=== PATIENT | female | born 1960 | race Caucasian/White ===

== ENCOUNTER 2017-09-20 20:41 | Emergency (ER) | payer OTHER ==
[~2017-09-20] VITALS: Ht 162.6 cm; Wt 63.5 kg
--- NOTE | 2017-09-20 22:05 | NUR ---
TO CT PATIENT TO CT VIA WHEELCHAIR WITH LISA CAMP
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
[2017-09-20] MEDS ORDERED: TYLENOL PO ONE (22:31)
[2017-09-20] MEDS ORDERED: TYLENOL PO STA (22:35)
[2017-09-20 22:36] VITALS: BP 164/89
== END 2017-09-20 22:35 | disposition home or self-care (01) ==
LOC: EDBD 20:41 → ER 20:41
DX: S00.03XA Contusion of scalp, initial encounter (principal); F17.200 Nicotine dependence, unspecified, uncomplicated; Z90.710 Acquired absence of both cervix and uterus; Y04.2XXA Assault by strike against or bumped into by another person, initial encounter; Y93.89 Activity, other specified; Y92.89 Other specified places as the place of occurrence of the external cause; Y99.8 Other external cause status
CPT/HCPCS: 70450; 99284; A9150

== ENCOUNTER 2019-08-05 13:22 | Emergency (ER) | payer SELFPAY ==
[~2019-08-05] VITALS: Ht 162.6 cm; Wt 54.4 kg
[2019-08-05 14:17] VITALS: BP 138/70
[2019-08-05] MEDS ORDERED: MOTRIN PO STA (14:19)
--- NOTE | 2019-08-05 14:42 | DIREP ---
PROCEDURE:XRAY ANKLE MIN 3VWS-RT COMPARISON:None. INDICATIONS:ankle pain, swelling FINDINGS: BONES:There appear to be one or more fractures of the talus. JOINTS:Normal. SOFT TISSUES:Swelling over both malleoli, worse on the right. OTHER:No additional findings. CONCLUSION:Probable fracture(s) of the right talus. CT can be performed to further evaluate. Dictated by: Chucho Gloria M.D. on 08/05/2019 at 02:34 PM
--- NOTE | 2019-08-05 15:03 | ER.PDOC ---
General Chief Complaint: Extremities Stated Complaint: INJURED ANKLE Time seen by MD: 14:20 Source: patient Exam Limitations: no limitations History of Present Illness Initial Comments Pt had a ladder fall on her right ankle yesterday, swelling and pain on that ankle Onset: yesterday Where: home Severity: moderate Context: crush Associated Symptoms: tingling, swelling, popping sensation Modifying Factors: pain on movement Allergies: Coded Allergies: No Known Allergies (Unverified , 11/30/15) Past Medical History Medical History: no pertinent history Surgical History: hysterectomy LMP (females 10-50): hysterectomy Social History Smoking: greater than 1 pack/day Alcohol Use: occassionally Drug Use: none Review of Systems Musculoskeletal: see HPI All Other Systems: Reviewed and Negative Physical Exam General Appearance: Alert, No Apparent Distress Foot: nml inspection, non-tender Ankle: tenderness, swelling (right lateral malleolus) Gait: unable to test gait Neuro: sensation nml, motor nml Vascular: no vascular compromise Tendons: tendon function nml Leg/Knee/Thigh: uninjured above ankle Skin: warm/dry Head/ENT: nml inspection, pharynx nml Neck/Back: nml inspection, non-tender Resp/CVS: no resp distress Abdomen: non-tender, no organomegaly Results/Orders Results/Orders Orders - AYE SANTANA MD Ibuprofen (Motrin) (08/05/19 14:19) Xr Ankle 3v Rt (08/05/19 14:19) Vital Signs Date Time Temp Pulse Resp B/P (MAP) Pulse Ox O2 Delivery O2 Flow Rate FiO2 08/05/19 14:17 97.4 90 17 08/05/19 14:17 97.4 90 17 138/70 (92) Room Air 08/05/19 14:06 97.4 90 17 97 Room Air Departure Time of Disposition: 15:03 Disposition: 01 HOME, SELF-CARE Impression: Primary Impression: Talar fracture Condition: Stable Patient Instructions: Ankle Fracture, Ankle Fracture with Rehab-SportsMed Referrals: PCP,UNKNOWN (PCP) PRIMARY CARE PROVIDER Duration or Time Spent with Pa: AYE SANDS MD Aug 05, 2019 15:03
[2019-08-05] MEDS ORDERED: MOTRIN ONE (15:25)
--- NOTE | 2019-08-05 15:32 | NUR ---
UPDATE PER PHYSICIAN ORDER APPLIED WALKING BOOT AND GAVE CRUTCHES. CRUTCH TRAINING DONE AND PATIENT RETURN DEMONSTRATED WITHOUT COMPLICATION. INSTRUCTED ON IMPORTANCE OF FOLLOW UP WITH ORTHO
== END 2019-08-05 15:30 | disposition home or self-care (01) ==
LOC: ER 13:22
DX: S92.101A Unspecified fracture of right talus, initial encounter for closed fracture (principal); F17.210 Nicotine dependence, cigarettes, uncomplicated; Z90.710 Acquired absence of both cervix and uterus; W11.XXXA Fall on and from ladder, initial encounter; Y93.89 Activity, other specified; Y92.098 Other place in other non-institutional residence as the place of occurrence of the external cause; Y99.8 Other external cause status
CPT/HCPCS: 99284; 73610-RT